=== PATIENT | female | born 1950 | race Caucasian/White ===

== ENCOUNTER 2017-08-27 08:04 | Outpatient (CLI) | payer MEDICARE, BC ==
--- NOTE | 2017-08-27 11:09 | MRI ---
MRI LEFT KNEE WITHOUT CONTRAST: HISTORY: M25.562 LEFT KNEE PAIN. COMPARISON: Knee radiograph 08/06/17. FINDINGS: MEDIAL MENISCUS: There is a near-complete radial tear at the posterior horn body junction medial meniscus with extensi on of horizontal tear into the root attachment. There is also extension of horizontal tear at the me dial meniscal body. There is also a vertical tear through the medial meniscal red zone anterior horn . LATERAL MENISCUS: There is intrameniscal degeneration of the lateral meniscus without a displaced tear. The ACL and PCL are intact. There is edema on both the medial an lateral sides of the medial collate ral ligament. The lateral collateral ligament is intact. EXTENSOR MECHANISM: The quadriceps tendon and patella tendon are intact. There is abnormal edema along the infrapatellar plica. CARTILAGE: PATELLOFEMORAL COMPARTMENT: Intact. MEDIAL COMPARTMENT: Intact. LATERAL COMPARTMENT: Intact. MUSCLES: Muscle signal and bulk is normal. Moderate joint effusion. Mild pes anserine bursitis. IMPRESSION: 1. Complex tear throughout the medial meniscus with a radio-oblique tear posterior horn and body wing ction as well as a vertical longitudinal tear throughout the body and anterior horn. There is mild g utter extrusion of the flap fragment as well as tearing extending into the root attachment. The unde rlying cartilage in the medial compartment appears relatively preserved for age. 2. Mild interligamentous degeneration anterior cruciate ligament. 3. Fluid extending along the medial collateral ligament superficial and deep fibers may be sequelae of the leakage from the medial meniscal tear. 4. Mild pes anserine bursitis. 5. Moderate joint effusion. 6. Edema along the inferior patella plica may be tracking from the joint effusion. The plica itself is not torn. 7. Mild edema along the myotendinous junction of the popliteus. POS: [facility]
== END 2017-08-27 08:05 | disposition home or self-care (01) ==
LOC: MRI 08:04
PROVIDERS: ATTEND Orthopaedic Surgery
DX: S83.241A Other tear of medial meniscus, current injury, right knee, initial encounter (principal); M25.462 Effusion, left knee; M70.52 Other bursitis of knee, left knee

== ENCOUNTER 2017-09-24 14:43 | Outpatient (CLI) | payer MEDICARE, BC | END 2017-09-24 14:44 | disposition home or self-care (01) | LOC: BICMAMMO 14:43 | PROVIDERS: ATTEND Family Medicine | DX: Z12.31 Encounter for screening mammogram for malignant neoplasm of breast (principal); R92.1 Mammographic calcification found on diagnostic imaging of breast | CPT/HCPCS: 77063; 77067 ==

== ENCOUNTER 2018-12-31 13:18 | Outpatient (CLI) | payer MEDICARE, BC ==
--- NOTE | 2018-12-31 14:37 | MMO ---
Bilateral MAMMO Bilat Screen [facility]. CLINICAL HISTORY: Patient is 68 years old and is seen for screening. The patient has no family history of breast cancer. The patient has no personal history of cancer. 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 VIEWS: The views performed were: bilateral craniocaudal with tomosynthesis; bilateral mediolateral oblique with tomosynthesis; and left mediolateral oblique. FILMS COMPARED: The present examination has been compared to a prior imaging study performed at [facility] on 09/24/2017. MAMMOGRAM FINDINGS: There are scattered fibroglandular densities. There are no suspicious masses, suspicious calcifications, or new areas of architectural distortion. IMPRESSION: THERE IS NO MAMMOGRAPHIC EVIDENCE OF MALIGNANCY. A ROUTINE FOLLOW-UP MAMMOGRAM IN 1 YEAR IS RECOMMENDED. THE RESULTS OF THIS EXAM WERE SENT TO THE PATIENT. ACR BI-RADS Category 1 - Negative MAMMOGRAPHY NOTE: 1. A negative mammogram report should not delay a biopsy if a dominant of clinically suspicious mass is present. 2. Approximately 10% to 15% of breast cancers are not detected by mammography. 3. Adenosis and dense breasts may obscure an underlying neoplasm. Reported by: Shawn WRIGHT Electonically Signed: [id number]
== END 2018-12-31 13:19 | disposition home or self-care (01) ==
LOC: BICMAMMO 13:18
PROVIDERS: ATTEND Family Medicine
DX: Z12.31 Encounter for screening mammogram for malignant neoplasm of breast (principal)
CPT/HCPCS: 77063; 77067

== ENCOUNTER 2020-06-20 13:18 | Outpatient (CLI) | payer MEDICARE, BC ==
--- NOTE | 2020-06-20 13:54 | MMO ---
Bilateral MAMMO Bilat Screen [facility]. CLINICAL HISTORY: Patient is 69 years old and is seen for screening. The patient has no family history of breast cancer. The patient has no personal history of cancer. 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 VIEWS: The views performed were: bilateral craniocaudal with tomosynthesis and bilateral mediolateral oblique with tomosynthesis. FILMS COMPARED: The present examination has been compared to prior imaging studies performed at [facility] on 09/24/2017 and 12/31/2018, and at [facility] on 07/19/2015 and 07/22/2016. This study has been interpreted with the assistance of computer-aided detection. MAMMOGRAM FINDINGS: There are scattered fibroglandular densities. There are vascular calcifications seen in both breasts. There are no suspicious masses, suspicious calcifications, or new areas of architectural distortion. IMPRESSION: A ROUTINE FOLLOW-UP MAMMOGRAM IN 1 YEAR IS RECOMMENDED. THE RESULTS OF THIS EXAM WERE SENT TO THE PATIENT. ACR BI-RADS Category 2 - Benign finding MAMMOGRAPHY NOTE: 1. A negative mammogram report should not delay a biopsy if a dominant of clinically suspicious mass is present. 2. Approximately 10% to 15% of breast cancers are not detected by mammography. 3. Adenosis and dense breasts may obscure an underlying neoplasm. Reported by: VANI NEGRON MD Electonically Signed: [id number]
== END 2020-06-20 13:19 | disposition home or self-care (01) ==
LOC: BICMAMMO 13:18
PROVIDERS: ATTEND Family Medicine
DX: Z12.31 Encounter for screening mammogram for malignant neoplasm of breast (principal); Z91.89 Other specified personal risk factors, not elsewhere classified
CPT/HCPCS: 77063; 77067

== ENCOUNTER 2020-12-20 13:11 | Outpatient (CLI) | payer MEDICARE, BC | END 2020-12-20 13:12 | disposition home or self-care (01) | LOC: BICMAMMO 13:11 | PROVIDERS: ATTEND Family Medicine | DX: M81.0 Age-related osteoporosis without current pathological fracture (principal); M85.851 Other specified disorders of bone density and structure, right thigh; M85.852 Other specified disorders of bone density and structure, left thigh | CPT/HCPCS: 77080 ==

== ENCOUNTER 2021-12-21 13:58 | Outpatient (CLI) | payer MEDICARE, BC | END 2021-12-21 13:59 | disposition home or self-care (01) | LOC: BICMAMMO 13:58 | PROVIDERS: ATTEND Family Medicine | DX: Z12.31 Encounter for screening mammogram for malignant neoplasm of breast (principal); M81.0 Age-related osteoporosis without current pathological fracture; M85.89 Other specified disorders of bone density and structure, multiple sites | CPT/HCPCS: 77063; 77067; 77080 ==

== ENCOUNTER 2024-03-05 14:37 | Outpatient (CLI) | payer MEDICARE, BC | END 2024-03-05 14:38 | disposition home or self-care (01) | LOC: BICMAMMO 14:37 | PROVIDERS: ATTEND Family Medicine | DX: Z12.31 Encounter for screening mammogram for malignant neoplasm of breast (principal) | CPT/HCPCS: 77063; 77067 ==

== ENCOUNTER 2025-03-14 14:26 | Outpatient (CLI) | payer MEDICARE, BC | END 2025-03-14 14:27 | disposition home or self-care (01) | LOC: BICRAD 14:26 | PROVIDERS: ATTEND Family Medicine | DX: M25.512 Pain in left shoulder (principal) ==

== ENCOUNTER 2025-04-07 13:05 | Outpatient (CLI) | payer MEDICARE, BC | END 2025-04-07 13:06 | disposition home or self-care (01) | LOC: BICMAMMO 13:05 | PROVIDERS: ATTEND Family Medicine | DX: Z12.31 Encounter for screening mammogram for malignant neoplasm of breast (principal); M81.0 Age-related osteoporosis without current pathological fracture | CPT/HCPCS: 77063; 77067; 77080 ==